=== PATIENT | female | born 1990 | race Caucasian/White ===

== ENCOUNTER 2016-08-23 00:57 | Emergency (ER) | payer OTHER | END 2016-08-23 02:03 | disposition home or self-care (01) | LOC: FER 00:57 | DX: M54.5 Low back pain (principal); Z87.828 Personal history of other (healed) physical injury and trauma; Y93.A9 Activity, other involving cardiorespiratory exercise; Y92.009 Unspecified place in unspecified non-institutional (private) residence as the place of occurrence of the external cause | CPT/HCPCS: 72100 ==

== ENCOUNTER 2016-09-14 02:49 | Emergency (ER) | payer OTHER | END 2016-09-14 04:49 | disposition home or self-care (01) | LOC: FER 02:49 | DX: S50.12XA Contusion of left forearm, initial encounter (principal); F41.9 Anxiety disorder, unspecified; F43.10 Post-traumatic stress disorder, unspecified; W20.8XXA Other cause of strike by thrown, projected or falling object, initial encounter; Y92.69 Other specified industrial and construction area as the place of occurrence of the external cause; Y99.0 Civilian activity done for income or pay | CPT/HCPCS: 73090 ==